=== PATIENT | female | born 2000 | race Caucasian/White ===

== ENCOUNTER → 2022-08-03 08:47 | Outpatient (CLI) | payer OTHER, SELFPAY ==
--- NOTE | ~2022-08-03 | US_ITS ---
US breast RT limited DATE: 08/03/2022 09:02 INDICATION: Right breast lump TECHNIQUE: Real-time and color flow imaging targeted at right breast lump at 6:00 subareolar area COMPARISON: None FINDINGS: There is a parallel circumscribed hypoechoic solid lesion with internal vascularity, withou t suspicious shadowing, the lesion measuring approximately 3.4 x 2.3 x 4.2 cm. This is likely a benig n fibroadenoma. IMPRESSION: BI-RADS Category 3: Probably benign fibroadenoma Recommendation: 6 month targeted right breast ultrasound follow-up Reviewed, dictated and finalized at [facility]. Reviewed, dictated and finalized at [facility].
== END ==
PROVIDERS: PCP Obstetrics & Gynecology; Visit Provider Obstetrics & Gynecology
DX: N63.15 Unspecified lump in the right breast, overlapping quadrants (principal); R92.8 Other abnormal and inconclusive findings on diagnostic imaging of breast
CPT/HCPCS: 76642

== ENCOUNTER → 2023-01-27 12:54 | Outpatient (CLI) | payer OTHER, SELFPAY ==
--- NOTE | ~2023-01-27 | US_ITS ---
EXAMINATION: US breast RT limited HISTORY: Six-month follow-up for probably benign right breast mass TECHNIQUE: Limited right breast ultrasound was performed. FINDINGS: There is a 5.5 x 1.9 cm oval, circumscribed, parallel, hypoechoic mass with no posterior fe atures or internal vascularity at the 6:00 location near the nipple which demonstrates slight interva l increase in size. Although finding may reflect a fibroadenoma, ultrasound-guided biopsy is recommen ded. IMPRESSION: Right breast mass with slight interval increase in size. Ultrasound guided biopsy is recommended. BI-RADS category 4, suspicious findings. Reviewed, dictated and finalized at [facility]. RAFT INSTRUMENT REPAIRER IMPRESSION: Right breast mass with slight interval increase in size. Ultrasound guided biop sy is recommended. BI-RADS category 4, suspicious findings.
== END ==
PROVIDERS: PCP Obstetrics & Gynecology; Visit Provider Obstetrics & Gynecology
DX: N63.15 Unspecified lump in the right breast, overlapping quadrants (principal); R92.8 Other abnormal and inconclusive findings on diagnostic imaging of breast
CPT/HCPCS: 76642

== ENCOUNTER 2025-01-04 14:22 | Outpatient (CLI) | payer OTHER, SELFPAY ==
--- NOTE | ~2025-01-04 | US_ITS ---
EXAM: PELVIC ULTRASOUND HISTORY: T83.32XA - Displacement of intrauterine contraceptive dev... COMPARISON: None FINDINGS: UTERUS: 7.9 x 2.3 x 4.1 cm. The endometrial complex measures 5.7 mm. On transvaginal cine views the intrauterine device can be seen in and out of the endometrial complex for which displacement is suspected. RIGHT OVARY: The right ovary is unremarkable in echogenicity and size measuring 2.9 x 2.4 x 2.3 cm. Dopplerable flow is identified. LEFT OVARY: The left ovary is unremarkable in echogenicity and size measuring 3.3 x 2.4 x 3.1 cm Dopplerable flow is identified. No free fluid is identified within the pelvis. IMPRESSION: Intrauterine device displacement, as detailed above. Reviewed, dictated and finalized at location [facility]. 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
== END 2025-01-04 14:23 | disposition home or self-care (01) ==
PROVIDERS: PCP Obstetrics & Gynecology; Visit Provider Obstetrics & Gynecology
DX: T83.32XA Displacement of intrauterine contraceptive device, initial encounter (principal)
CPT/HCPCS: 76830; 76856